=== PATIENT | female | born 1985 | race Caucasian/White ===

== ENCOUNTER 2017-09-02 13:43 | Outpatient (CLI) | payer OTHER ==
[~2017-09-02 13:43] MED LIST: ANTIBIOTIC PO; FOLI0.4T2 PO; LEVE500T53 PO; PREN1TAB28 PO
[2017-09-02 14:30] VITALS: BP 122/60
== END 2017-09-02 14:41 | disposition home or self-care (01) ==
LOC: MERGE 13:43 → LDOP 13:43
PROVIDERS: ATTEND Obstetrics & Gynecology
DX: O26.892 Other specified pregnancy related conditions, second trimester (principal); R42 Dizziness and giddiness; R10.9 Unspecified abdominal pain; Z3A.23 23 weeks gestation of pregnancy
CPT/HCPCS: 59025; 99201; G0463

== ENCOUNTER 2017-12-25 01:24 | Outpatient (CLI) | payer OTHER ==
[2017-12-26] MEDS ORDERED: IBUP-1222 PO (10:12)
== END 2017-12-25 02:45 | disposition home or self-care (01) ==
LOC: LDOP 01:24
PROVIDERS: ATTEND Obstetrics & Gynecology
DX: O26.893 Other specified pregnancy related conditions, third trimester (principal); R10.9 Unspecified abdominal pain; Z3A.39 39 weeks gestation of pregnancy
CPT/HCPCS: 59025; 99211; G0463

== ENCOUNTER 2017-12-25 07:05 | Inpatient (IN) | payer OTHER ==
[~2017-12-25] VITALS: Ht 165.1 cm; Wt 92.7 kg
[2017-12-25] MEDS ORDERED: FENTANYL PF 100 MCG/2ML ONE (07:29)
[2017-12-25 07:30] VITALS: BP 125/61
[2017-12-25] MEDS ORDERED: OXYTOCIN 30U/ 0.9% NaCL 500ML 500 ML IV ONE (07:41)
[2017-12-25] MEDS ORDERED: LACTATED RINGERS 1,000 ML IV SCH (07:41)
[2017-12-25] MEDS ORDERED: D5%-LACTATED RINGERS 1,000 ML IV SCH (07:41)
[2017-12-25 08:00] LABS: BASOPHILS # (AUTO) 0.01 x10^3/uL (0-0.1); BASOPHILS % (AUTO) 0 % (0-1); EOSINOPHILS # (AUTO) 0.01 x10^3/uL (0-0.4); EOSINOPHILS % (AUTO) 0 % (1-7); LYMPHOCYTES # (AUTO) 1.93 x10^3/uL (1-3.4); LYMPHOCYTES % (AUTO) 20 % (22-44); MD NO; MEAN CORPUSCULAR HEMOGLOBIN 29.5 pg (27.0-34.8); MEAN CORPUSCULAR HGB CONC 33.4 g/dL (32.4-35.8); MEAN CORPUSCULAR VOLUME 88.1 fL (80-100); MEAN PLATELET VOLUME 7.3 fL (7.4-10.4); MONOCYTES % (AUTO) 6 % (2-9); NEUTROPHILS # (AUTO) 7.09 x10^3/uL (1.8-6.8); NEUTROPHILS % (AUTO) 74 % (42-75); PLATELET COUNT 223 x10^3/uL (130-400); RED BLOOD COUNT 3.83 x10^6/uL (3.82-5.3); RED CELL DISTRIBUTION WIDTH 15.8 % (9.6-15.2)
[2017-12-25] MEDS ORDERED: CALCIUM CARBONATE 500 MG TAB.CHEW PO PRN (08:00)
[2017-12-25] MEDS ORDERED: PLEASE ENTER HEIGHT MC SCH (08:00)
[2017-12-25] MEDS ORDERED: FENTANYL PF 100 MCG/2ML IVPush PRN (08:00)
[2017-12-25] MEDS ORDERED: MISOPROSTOL 200 MCG TABLET ONE (08:01)
[2017-12-25] MEDS ORDERED: NEWBORN KIT ONE (08:01)
[2017-12-25] MEDS ORDERED: LIDOCAINE 1%-EPI 1:100K, 20ML ONE (08:02)
[2017-12-25] MEDS ORDERED: OXYTOCIN 30U/ 0.9% NaCL 500ML 500 ML ONE (08:02)
[2017-12-25] MEDS ORDERED: OXYTOCIN 30U/ 0.9% NaCL 500ML 500 ML IV SCH (09:13)
[2017-12-25] MEDS ORDERED: ONDANSETRON 2MG/ML, 2ML IV PRN (09:30)
[2017-12-25] MEDS ORDERED: ACETAMINOPHEN 325 MG TABLET PO PRN (09:30)
[2017-12-25] MEDS ORDERED: MISOPROSTOL 200 MCG TABLET PR PRN (09:30)
[2017-12-25] MEDS ORDERED: OXYcodone/APAP 5/325MG TABLET PO PRN (09:30)
[2017-12-25] MEDS ORDERED: DOCUSATE 100 MG CAPSULE PO PRN (09:30)
[2017-12-25 11:30] VITALS: BP 113/64
[2017-12-25] MEDS: IBUPROFEN 600 MG TABLET PO PRN ×2 (11:38→19:13)
[2017-12-25 16:40] LABS: BASOPHILS # (AUTO) 0.01 x10^3/uL (0-0.1); BASOPHILS % (AUTO) 0 % (0-1); EOSINOPHILS # (AUTO) 0.01 x10^3/uL (0-0.4); EOSINOPHILS % (AUTO) 0 % (1-7); LYMPHOCYTES # (AUTO) 2.24 x10^3/uL (1-3.4); LYMPHOCYTES % (AUTO) 21 % (22-44); MD NO; MEAN CORPUSCULAR HEMOGLOBIN 30.2 pg (27.0-34.8); MEAN CORPUSCULAR HGB CONC 33.6 g/dL (32.4-35.8); MEAN CORPUSCULAR VOLUME 90.1 fL (80-100); MEAN PLATELET VOLUME 7.5 fL (7.4-10.4); MONOCYTES % (AUTO) 6 % (2-9); NEUTROPHILS % (AUTO) 73 % (42-75); PLATELET COUNT 225 x10^3/uL (130-400); RED BLOOD COUNT 3.63 x10^6/uL (3.82-5.3); RED CELL DISTRIBUTION WIDTH 15.7 % (9.6-15.2)
[2017-12-25 19:30] VITALS: BP 112/72
[2017-12-26 00:30] VITALS: BP 102/69
[2017-12-26 08:00] VITALS: BP 104/64
[2017-12-26] MEDS ORDERED: PRENATAL VIT/IRON/FA 1 EACH TABLET PO SCH (09:00)
[2017-12-26] MEDS ORDERED: IBUP-1222 PO (10:12)
== END 2017-12-26 12:45 | disposition home or self-care (01) | DRG 775 ==
LOC: LDOP 07:05 → LDIP 07:32 → 2NW 10:58 → EDSTATUS 12-30 07:05
PROVIDERS: ADMIT Obstetrics & Gynecology; ATTEND Obstetrics & Gynecology
PROC: 10E0XZZ Delivery of Products of Conception, External Approach (ICD-10-PCS; principal; 2017-12-25)
DX: O62.3 Precipitate labor (principal); O77.0 Labor and delivery complicated by meconium in amniotic fluid; Z37.0 Single live birth; Z3A.39 39 weeks gestation of pregnancy
CPT/HCPCS: 36415; 85025; 86850; 86900; 87806; J3010; G0475; J2590; J7120

== ENCOUNTER → 2019-02-02 | Outpatient (CLI) | payer OTHER ==
[~2019-02-02] MED LIST changes: +IBUP-1222 PO
== END | disposition home or self-care (01) ==
LOC: CARD 09:01
PROVIDERS: ATTEND Psychiatry & Neurology Neurology
DX: R94.01 Abnormal electroencephalogram [EEG] (principal); G40.909 Epilepsy, unspecified, not intractable, without status epilepticus
CPT/HCPCS: 95819